=== PATIENT | male | born 1980 | race Caucasian/White ===

== ENCOUNTER 2017-03-06 00:26 | Emergency (ER) | payer OTHER ==
[~2017-03-06] VITALS: Ht 170.2 cm; Wt 70.5 kg
[~2017-03-06 00:26] MED LIST: ALPR1TAB7 PO; AMT50T PO
[2017-03-06 00:29] VITALS: BP 137/88; PULSE 104; RESP 20; O2SAT 98
--- NOTE | 2017-03-06 00:45 | ED.REPORT ---
HPI-Abd Pain M Under 42 Date of Service Mar 06, 2017 ED Provider: Dr. Galan A 26 year old male with a history of nephrolithiasis presents to the ED complaining of intermittent, severe left flank pain accompanied by nausea. Nursing Notes Stated Complaint: ABDOMINAL PAIN Chief Complaint: Male Abdominal Pain Nursing Notes Reviewed: Yes Allergies: Coded Allergies: acetaminophen (Verified Allergy, Unknown, "HURTS MY STOMACH", 03/06/17) Scheduled Alprazolam (Alprazolam) 1 Mg Tablet 1 MG PO TID Amitriptyline (Amitriptyline) 50 Mg Tab 150 MG PO HS General Time Seen by MD: 00:45 Chief Complaint Flank pain left Hx Obtained From: Patient Arrived By: Walk-in Sudden in Onset?: No Onset Occurred: Onset unknown Symptom Duration: Intermittent Progression since Onset: Intermittent Severity: Current: Severe Severity: Maximum: Severe Recent Healthcare: No recent doctor visit Similar Sx Previous: No Past Medical History Past Medical History IBS Ulcerative colitis Depression Kidney stones Past Surgical History Facial reconstruction after trauma Bilateral knee surgery Tonsillectomy Family History Noncontributory Smoking History Former Smoker Social History Alcohol Use: 3-5 per day Drug Use: Denies drug use Other Social History: , Local resident Ambulatory Status Independent Review of Systems Constitutional: Denies: Chills, Fever Respiratory: Denies: Non-productive cough Musculoskeletal: Reports: Back pain (Left flank pain) Complete sys rev & neg: except as marked. Physical Exam Initial Vital Signs Vital Signs (First) Date Time Temp Pulse Resp B/P Pulse Ox O2 Delivery O2 Flow Rate FiO2 03/06/17 00:29 36.3 104 20 137/88 98 Room Air General/Constitutional: Awake, Alert Distress / Hydration: Positive: Distress moderate Respiratory / Chest: Atraumatic, Breath sounds NL, Breath sounds = bilat, No respiratory distress, No rales, No rhonchi, No wheezing Cardiovascular: Heart rate NL, Regular rhythm, Heart sounds NL, No gallop, No murmurs, No rubs Tenderness/Guarding/Rebound: Positive: Tender LLQ... (moderate) Back: Atraumatic Left CVA tenderness. Head / Eyes: Atraumatic, Normocephalic, PERRL, EOMI ENT: Atraumatic, Mucous membranes moist Neurologic: Oriented X3, Speech NL Upper Extremity / MS: No swelling, No edema Lower Extremity / Pelvis / MS: No swelling, No edema Interpretation & Diagnostics Lab Results Interpretation Result Diagram: 03/06/17 0050 03/06/17 0050 Test 03/06/17 00:50 White Blood Count 6.5th/mm3 (3.8-10.1) Red Blood Count 4.65mil/mm3 (4.40-5.80) Hemoglobin 15.0g/dL (13.8-17.2) Hematocrit 42.5% (41.0-50.0) Mean Corpuscular Volume 91.4fL (81-100) Mean Corpuscular Hemoglobin 32.3pg (27.0-35.0) Mean Corpuscular Hemoglobin Concent 35.3% (32.0-37.0) Red Cell Distribution Width 12.4% (12.3-15.4) Platelet Count 483bil/L (150-400) Neutrophils (%) (Auto) 53.6% (40-74) Lymphocytes (%) (Auto) 36.6% (14-46) Monocytes (%) (Auto) 5.8% (4-12) Eosinophils (%) (Auto) 3.2% (0-5) Basophils (%) (Auto) 0.5% (0-3) Hold Purple Top Tube Received (Received) Hold Blue Top Tube Received (Received) Urine Color Yellow (YELLOW) Urine Appearance Hazy (CLEAR,HAZY) Urine pH 7.0 (5.0-8.0) Urine Specific [place] 1.010 (1.003-1.035) Urine Protein Negativemg/dL (NEG,TRACE) Urine Glucose (UA) Negativemg/dL (NEGATIVE) Urine Ketones Tracemg/dL (NEGATIVE) Urine Occult Blood Small (NEGATIVE) Urine Nitrite Negative (NEGATIVE) Urine Bilirubin Negative (NEGATIVE) Urine Urobilinogen Normalmg/dL (NORMAL) Urine Leukocyte Esterase Negative (NEGATIVE) Urine RBC 3-10/hpf (0-2) Urine WBC 0-5/hpf (0-5) Urine Epithelial Cells Occasional/hpf (NONE-MOD) Urine Crystals Amorphous urates (NONE Urine Bacteria Few/hpf (NONE-FEW) Urine Hyaline Casts None/lpf (NONE) Urine Granular Casts None seen (NONE SEEN) Urine Waxy Casts None seen (NONE SEEN) Urine Red Blood Cell Casts None seen (NONE SEEN) Urine White Blood Cell Casts None seen (NONE SEEN) Urine Mucus None seen (None Seen) Urine Trichomonas None seen (NONE SEEN) Urine Yeast None (NONE SEEN) Urinalysis Comment None Sodium Level 141mEq/L (134-144) Potassium Level 4.3mEq/L (3.5-5.2) Chloride Level 100mEq/L (97-108) Carbon Dioxide Level 21mmol/L (18-29) Blood Urea Nitrogen 15mg/dL (6-20) Creatinine 0.92mg/dL (0.76-1.27) Estimat Glomerular Filtration Rate 100mL/min (>59) Glucose Level 139mg/dL (60-99) Calcium Level 9.0mg/dL (8.5-10.1) Total Bilirubin 0.2mg/dL (0.0-1.2) Aspartate Amino Transf (AST/SGOT) 36U/L (0-50) Alanine Aminotransferase (ALT/SGPT) 58U/L (0-44) Alkaline Phosphatase 89U/L (25-150) Total Protein 7.2g/dL (6.4-8.4) Albumin 4.6g/dL (3.4-5.0) Hold [place] Top Tube Received (Received) CT Abd / Pelvis Interpretation CONCLUSION: Mild left hydronephrosis with a 3 mm stone near the left ureterovesicularr junction. Bilateral nephrolithiasis. Other findings as described above. Singed by Cory De La Rosa M.D. 03/06/2017, 0145 Re-Eval/Medical Decision Med Decision/Clinical Course A small UVJ stone is present. He should have the passes. Short course of Percocet will be provided. He lists are acetaminophen as an allergy. He just tells me that more than 200 mg of acetaminophen upsets his stomach. I think he is trying to describe Motrin however he is not sure if it is Motrin or acetaminophen. He certainly states that he can take Tylenol and so therefore the Percocet will be fine. I did prescribe 15 oxycodone IR tablets. Percocet home tonight. I will give him a urologist to follow up with. Recommend that he has a stone analyzed as well. Source of Hx: Old records Re-Evaluation/Progress : Time of Eval: 01:39 Re-Evaluation/Progress Note: Examined patient's CT results. Rechecked patient, explained test results, diagnosis, and plan for discharge. Patient understands and agrees with the plan. All questions addressed. Counseled Regarding: Diagnosis, Lab results, Need for follow-up, When/why to return to ED Patient Discharge & Departure Primary Impression: Left ureteral stone Additional Impression: Renal cyst, left Disposition: Home Patient Instructions: Renal Colic (ED) Additional Instructions: You have a 3 mm stone that is almost in your bladder. You should pass it in the next couple of days. Drink plenty of liquids. Take 1-2 Percocet every 6 hours as needed. Follow-up with your primary care physician or the referral urologist. Strain your urine and catch the stone. The stone can be tested to see what is leading to the stone formation. There is also a renal cyst that will need to be followed up with. Do not drive, drink alcohol, or consume acetaminophen before taking the Percocet. Return if any problems or any worsening symptoms arise. Referrals: Joni Mejia MD (PCP) Adelita Gu MD Attestation Portions of this note were transcribed by Mikhail Martin. I, Dr. Galan personally performed the history, physical exam and medical decision-making; I reviewed and confirmed the accuracy of the information in the transcribed note. Signed by: Elizabeth Slaughter, 03/06/2017, 0258. copies to: Adelita Gu MD; Joni Mejia MD, Todd P DO Mar 06, 2017 00:45 Mikhail Martin Mar 06, 2017 01:01
[2017-03-06] MEDS ORDERED: 0.9% Sodium Chloride 1,000 ML IV SCH (01:00)
[2017-03-06 01:05] LABS: BASOPHILS % (AUTO) 0.5 % (0-3); EOSINOPHILS % (AUTO) 3.2 % (0-5); MONOCYTES % (AUTO) 5.8 % (4-12); Mean Corpuscular Hemoglobin 32.3 pg (27.0-35.0); Mean Corpuscular Volume 91.4 fL (81-100); NEUTROPHILS % (AUTO) 53.6 % (40-74); Platelet Count 483 bil/L (150-400)
[2017-03-06 01:12] LABS: APPEARANCE,URINE HAZY (CLEAR,HAZY); COLOR,URINE YELLOW (YELLOW); OCCULT BLOOD,URINE SMALL (NEGATIVE); UROBILINOGEN,URINE NORMAL (NORMAL)
[2017-03-06] MEDS: HYDROmorphone 0.5 mg/0.5 mL iSecure Syringe IVPUSH PRN ×2 (01:18→02:14)
[2017-03-06] MEDS ORDERED: _oxyCODONE/APAP 5-325 mg Tablet PO PRN (02:50)
[2017-03-06 03:07] VITALS: PULSE 81; RESP 14; O2SAT 99
--- NOTE | 2017-03-06 08:30 | DRSVH ---
PROCEDURE: CT KUB ([id number]) INDICATIONS: left flank and LLquadrant pain TECHNIQUE: Noncontrast 5 mm thick sections acquired from the diaphragms to the symphysis. 5 mm thick coronal an d sagittal reformats were then performed. For radiation dose reduction, the following was used: aut omated exposure control, adjustment of mA and/or kV according to patient size. COMPARISON: [facility], CT, ABDOMEN/PELVIS WITH CONTRAST, 08/17/2013, 11:53. [facility], CT, KUB - CT (PN), 07/26/2011, 11:04. FINDINGS: Image quality: Excellent. Lung bases: Lung bases are clear. Heart size is normal. Urinary system: There is a 3 mm stone within the urinary bladder near the left ureterovesical juncti on, likely a recently passed stone. There is mild left hydronephrosis. There is a 1 mm calculus in mi d left kidney. There is a 3 mm stone in the inferior pole of the right kidney. The kidneys are normal in size. Small hypodense nodules in the left knee are most likely renal cysts. Other solid organs: Liver and spleen are normal in size. Gallbladder is unremarkable. Pancreas is normal in contours. No adrenal nodules. Peritoneum and bowel: Unenhanced bowel loops demonstrate normal wall thickness and caliber. No free fluid or air. Nodes and vessels: No retroperitoneal or mesenteric adenopathy by size criteria. Aorta and inferior vena cava are normal in caliber. Abdominal wall: No ventral hernias. Pelvis: No free pelvic fluid. No inguinal adenopathy. There is a tiny fat-containing left inguinal hernia. Bones: No suspicious bony lesions. No vertebral body compression fractures. IMPRESSION: 1. A 3 mm stone within the bladder near the left UVJ, probably recently passed stone. There is mild l eft hydronephrosis. 2. Nephrolithiasis bilaterally. There is a 1 mm stone in the mid left kidney and a 3 mm stone in the inferior pole of the right kidney. 3. Small left renal cortical hypodense nodules are most likely renal cysts. No significant discrepancy with the air defense specialist radiology preliminary report. Dictated by: Kala Yun M.D. on 03/06/2017 at 8:20 Approved by: Kala Yun M.D. on 03/06/2017 at 8:28
== END 2017-03-06 03:07 | disposition home or self-care (01) ==
LOC: SED 00:26
DX: N13.2 Hydronephrosis with renal and ureteral calculous obstruction (principal); N28.1 Cyst of kidney, acquired; Z87.442 Personal history of urinary calculi; Z87.891 Personal history of nicotine dependence; Z88.6 Allergy status to analgesic agent
CPT/HCPCS: 74176; 80053; 81001; 85025; 96361; 96374; 96375; 96376; 99285; J1170; J1885; J7030